=== PATIENT | female | born 1975 | race Caucasian/White ===

== ENCOUNTER → 2017-12-24 | Outpatient (CLI) | payer OTHER | END | disposition home or self-care (01) | LOC: SONOGRAMA 14:29 → MAMO-SONO 14:45 | DX: E03.8 Other specified hypothyroidism (principal) ==

== ENCOUNTER 2018-05-10 14:02 | Outpatient (CLI) | payer OTHER | END 2018-05-10 14:54 | disposition home or self-care (01) | LOC: MAMO-SONO 14:02 | DX: Z12.31 Encounter for screening mammogram for malignant neoplasm of breast (principal); N62 Hypertrophy of breast ==

== ENCOUNTER 2018-06-19 10:43 | Outpatient (CLI) | payer OTHER | END 2018-06-19 10:50 | disposition home or self-care (01) | LOC: SONOGRAMA 10:43 | DX: N84.0 Polyp of corpus uteri (principal) ==

== ENCOUNTER 2018-10-16 05:40 | Day surgery (SDC) | payer OTHER | END 2018-10-16 13:40 | disposition home or self-care (01) | LOC: CIR.AMB 05:40 | DX: N84.0 Polyp of corpus uteri (principal) ==

== ENCOUNTER 2019-02-27 09:55 | Outpatient (CLI) | payer OTHER | END 2019-02-27 10:09 | disposition home or self-care (01) | LOC: TOM 09:55 | DX: R10.84 Generalized abdominal pain (principal) ==

== ENCOUNTER 2019-12-24 09:11 | Outpatient (CLI) | payer OTHER | END 2019-12-24 09:16 | disposition home or self-care (01) | LOC: SONOGRAMA 09:11 | DX: R10.84 Generalized abdominal pain (principal) ==

== ENCOUNTER 2020-12-23 07:54 | Outpatient (CLI) | payer OTHER | END 2020-12-23 08:00 | disposition home or self-care (01) | LOC: LAB 07:54 | PROVIDERS: ATTEND General Practice | DX: I10 Essential (primary) hypertension (principal); E03.8 Other specified hypothyroidism ==

== ENCOUNTER 2021-01-10 07:16 | Outpatient (CLI) | payer OTHER | END 2021-01-10 07:22 | disposition home or self-care (01) | LOC: SONOGRAMA 07:16 | PROVIDERS: ATTEND General Practice | DX: E03.8 Other specified hypothyroidism (principal) ==

== ENCOUNTER 2021-01-13 09:07 | Outpatient (CLI) | payer OTHER | END 2021-01-13 09:08 | disposition home or self-care (01) | LOC: NUCLEAR 09:07 | PROVIDERS: ATTEND General Practice | DX: R42 Dizziness and giddiness (principal); R53.83 Other fatigue; I65.23 Occlusion and stenosis of bilateral carotid arteries; R55 Syncope and collapse; I10 Essential (primary) hypertension ==

== ENCOUNTER 2021-02-14 07:47 | Outpatient (CLI) | payer OTHER | END 2021-02-14 07:54 | disposition home or self-care (01) | LOC: SONOGRAMA 07:47 | PROVIDERS: ATTEND Internal Medicine Gastroenterology | DX: R10.32 Left lower quadrant pain (principal) ==

== ENCOUNTER 2023-10-01 09:54 | Outpatient (CLI) | payer OTHER ==
[~2023-10-01 09:54] MED LIST: GABAPENTIN100 MG PO; NABUMETONE500 MG PO
== END 2023-10-01 10:11 | disposition home or self-care (01) ==
LOC: SONOGRAMA 09:54
PROVIDERS: ATTEND Pathology Anatomic Pathology
DX: D34 Benign neoplasm of thyroid gland (principal); E07.89 Other specified disorders of thyroid; E04.2 Nontoxic multinodular goiter

== ENCOUNTER 2025-08-04 08:56 | Outpatient (CLI) | payer OTHER | END 2025-08-04 09:03 | disposition home or self-care (01) | LOC: SONOGRAMA 08:56 | PROVIDERS: ATTEND Internal Medicine Cardiovascular Disease | DX: M12.9 Arthropathy, unspecified (principal); M19.90 Unspecified osteoarthritis, unspecified site; M10.9 Gout, unspecified ==